=== PATIENT | female | born 1955 | race Caucasian/White ===

== ENCOUNTER 2024-11-12 10:53 | Outpatient (CLI) | payer MEDICARE, BC, SELFPAY ==
--- NOTE | ~2024-11-12 | CT_ITS ---
CT Scan of the Chest without Contrast: Clinical Indication: Lung cancer screening, nicotine dependence Technique: Contiguous sections were acquired throughout the chest without intravenous contrast. Dose reduction technique was used on this scan by utilizing automated exposure control and iterative recon struction technique. The dose-length product (DLP) was 86.90 mGy-cm. Findings: There is no evidence of any significant mediastinal, hilar or axillary lymphadenopathy. Coronary ki ry calcifications are present. There is no evidence of pleural or pericardial effusion. Moderate emphysema present. There is an area cystic change at the right lung base. No pulmonary nodul e evident. Images through the upper abdomen reveal no abnormalities. There is DISH of the thoracic spine. Impression: Lung RADS 2: Benign appearance. 12 month follow-up screening CT advised. Reviewed, dictated and finalized at [facility]. Impression: Lung RADS 2: Benign appearance. 12 month follow-up screening CT advised.
== END 2024-11-12 10:54 | disposition home or self-care (01) ==
PROVIDERS: PCP Nurse Practitioner Family; Visit Provider Nurse Practitioner Family
DX: Z12.2 Encounter for screening for malignant neoplasm of respiratory organs (principal); Z87.891 Personal history of nicotine dependence
CPT/HCPCS: 71271

== ENCOUNTER 2024-11-21 11:50 | Emergency (ER) | payer MEDICARE, BC, SELFPAY ==
--- NOTE | ~2024-11-21 | XR_ITS ---
EXAMINATION: XR foot RT min 3V DATE: 11/21/2024 12:17 INDICATION: Pain and erythema in the metatarsal region of the foot TECHNIQUE: Dorsoplantar, two oblique and lateral views of the right foot were obtained. COMPARISON: None. FINDINGS: Likely old healed fracture at the neck of the right fifth metatarsal. Bone alignment is otherwise nor mal. No acute fractures identified. Erosion with overhanging edges and sclerotic margins at the media l head of the first metatarsal with typical location and appearance for gout. Mild polyarticular oste oarthritis at multiple tarsometatarsal, metatarsophalangeal and interphalangeal joints. Small heterot opic ossicle medial to the first metatarsophalangeal joint. Small plantar calcaneal spur. IMPRESSION: 1. Erosion at the medial head of the first metatarsal with typical location and appearance for gout. Reviewed, dictated and finalized at location A.
--- NOTE | 2024-11-21 11:51 | ED.LOWEXIN ---
HPI - Extremity Injury (Lower) General Chief Complaint: Extremity Injury, Lower Stated Complaint: RT Foot bruise Time Seen by Provider: 11/21/24 11:51 Source: patient Mode of arrival: ambulatory Limitations: no limitations History of Present Illness HPI Narrative: Ariana is a 69-year-old female patient presenting to the clinic today with complaints of right foot pain/swelling. States the area is burning and aching. States that she hit the right 5th toe/metatarsal area on a heavy wooden table leg on Tuesday. Denies falling, hitting her head, or loss of consciousness. States the area has become more painful swollen over the last few days. Thought initially it may be bruised. Patient does have history of bladder cancer and is having surgery on December 10. Denies any fevers, chills, body aches. Patient is not currently taking any blood thinners. No history of gout or cellulitis Related Data Home Medications ?Medication ?Instructions ?Recorded ?Confirmed ?Last Taken ?Type calcium 315 mg (as 1 tablet PO DAILY 11/07/24 11/21/24 Unknown History citrate)-vitamin D3 5 mcg (200 unit) tablet (Calcium Citrate + D) loratadine 10 mg tablet 10 mg PO DAILY 11/07/24 11/21/24 Unknown History vibegron 75 mg tablet (Gemtesa) mg PO 11/07/24 11/07/24 Unknown History Allergies Allergy/AdvReac Type Severity Reaction Status Date / Time No Known Allergies Allergy Verified 11/21/24 11:55 Review of Systems Review of Systems: Pertinent positives per HPI. Patient denies any fever, chills, rash, headache, visual changes, dizziness, cough, runny nose, sore throat, shortness of breath, chest pain, palpitations, nausea, vomiting, diarrhea, constipation, abdominal pain, or any urinary issues. [facility] Past Medical History Medical History Hypertension CKD (chronic kidney disease) Hypothyroidism Osteoporosis Elevated blood pressure reading in office without diagnosis of hypertension Type 2 diabetes mellitus COPD (chronic obstructive pulmonary disease) Bladder cancer Osteoarthritis Surgical History Surgical History H/O tubal ligation H/O foot surgery History of bladder surgery Family History Family History Father Lung cancer Heart disease Mother Breast cancer, Onset Age: 70 Heart disease Sibling Thymus cancer Grandparent Bladder cancer Social History Social History Smoking packs per day: 2 Smoking cigarettes per day: 40.0 Years smoked: 40 Smoking pack-years: 80.00 Smoking status: Former smoker Substance use: current Substance use type: marijuana Do You Feel Safe in your Home?: Yes Living arrangements: alone Comments At the time of my signature, I reviewed and agree with the nursing past medical, surgical, social, and family history. There is no relevant family history pertinent to the patient complaint. Exam Narrative: General: Well-developed, well nourished, in no apparent distress Head: Normocephalic, atraumatic. Cardio: Regular rate and rhythm, s1 and s2 normal, no murmur appreciated. Resp: Clear to auscultation bilaterally, no rhonchi, rales, wheezing or rubs. Musculoskeletal: No deformity, tender to palpation over the distal right 5th metatarsal, localized redness and swelling noted with redness up to the dorsal midfoot, grossly normal range of motion, muscle strength strong and equal, peripheral pulse strong, no edema, no cyanosis, normal gait and station Course Course Emergency Course: Portions of this record may have been created with voice recognition software. Level of Care: Express Care Visit Vital Signs Vital signs: Vital Signs Temperature 36.2 C L 11/21/24 12:00 Pulse Rate 66 11/21/24 12:00 Respiratory Rate 16 11/21/24 12:00 Blood Pressure 150/70 H 11/21/24 12:00 Pulse Oximetry 94 11/21/24 12:00 Oxygen Delivery Room Air 11/21/24 12:00 Temperature 36.2 C L 11/21/24 12:00 Pulse Rate 66 11/21/24 12:00 Respiratory Rate 16 11/21/24 12:00 Blood Pressure 150/70 H 11/21/24 12:00 Pulse Oximetry 94 11/21/24 12:00 Oxygen Delivery Room Air 11/21/24 12:00 Vital signs reviewed MDM - Extremity Injury (Lower) MDM Narrative Medical decision making narrative: At the time of visit patient is resting comfortably on the exam table. Patient appears to be nontoxic. Diagnostics: X-ray of the right foot was performed. X-ray shows possibility of gout erosion to the right great toe. Patient denies any history of gout. Also has old healed fracture of the right 5th metatarsal Plan: I suspect this is likely an arthritic flare however cannot rule out early cellulitis. Patient denies any current fevers chills or body aches. Patient has bladder cancer surgery on December 10. Prescription for Medrol Dosepak was ordered to cover for arthritis and Keflex was ordered to cover for early cellulitis. Supportive measures were discussed with the patient and they voiced understanding discharge instructions and agrees to treatment plan. Return precautions reviewed Differential Diagnosis Differential diagnosis: Likely fracture of toe and other (Metatarsal fracture, cellulitis, arthritis, gout) Discharge Plan Discharge Clinical Impression: Acute foot pain Patient Disposition: Home Condition: Stable Instructions: Antibiotic Form, Cellulitis (ED), Arthritis (ED), Metatarsalgia (DC) Additional Instructions: X-rays negative for any sign of fracture or malalignment of the right foot. Take Medrol Dosepak as prescribed Take cephalexin as prescribed Increase fluids and stay well hydrated May take Tylenol as needed for pain Follow-up with your primary care doctor in 5-7 days if symptoms persist or sooner if they worsen Patient Language: Cymraes Prescriptions: New cephalexin 500 mg capsule 500 mg PO Q8H 7 Days Qty: 21 0RF methylprednisolone [Medrol ([place])] 4 mg tablets,dose pack See Rx Instructions PO .COMPLEX Qty: 21 0RF Rx Instructions: orally per package directions No Action calcium citrate-vitamin D3 [Calcium Citrate + D] 315 mg-5 mcg (200 unit) tablet 1 tablet PO DAILY loratadine 10 mg tablet 10 mg PO DAILY Gemtesa 75 mg tablet PO budesonide-formoterol [Symbicort] 160-4.5 mcg/actuation HFA aerosol inhaler 2 puff inhalation Q12H Qty: 30.6 1RF Combivent Respimat 20-100 mcg/actuation mist 1 puff inhalation QID Qty: 12 1RF Rx Instructions: space evenly during waking hours levothyroxine [Synthroid] 25 mcg tablet 25 mcg PO DAILY Qty: 90 1RF montelukast 10 mg tablet 10 mg PO DAILY Qty: 90 1RF nebivolol 2.5 mg tablet 2.5 mg PO DAILY Qty: 90 1RF olmesartan-hydrochlorothiazide 20-12.5 mg tablet 1 tablet PO DAILY Qty: 90 1RF venlafaxine 75 mg capsule,extended release 24hr 75 mg PO DAILY Qty: 90 1RF clindamycin phosphate 1 % gel 1 applic topical BID PRN (Reason: abscess) Qty: 60 0RF rosuvastatin 20 mg tablet 20 mg PO DAILY Qty: 90 1RF Follow-up/Referrals: Kita Granger APRN [Primary Care Provider] - Time of Disposition: 12:33 Quality NIHSS Nursing Documentation ED NIHSS nursing documentation: reviewed/agree
[2024-11-21 12:00] VITALS: BP 150/70; PULSE 66; RESP 16; TEMP 36.2; O2SAT 94
== END 2024-11-21 12:32 | disposition home or self-care (01) ==
PROVIDERS: Emergency Provider Nurse Practitioner Family; PCP Nurse Practitioner Family
DX: M79.671 Pain in right foot (principal); I12.9 Hypertensive chronic kidney disease with stage 1 through stage 4 chronic kidney disease, or unspecified chronic kidney disease; E11.22 Type 2 diabetes mellitus with diabetic chronic kidney disease; N18.9 Chronic kidney disease, unspecified; C67.9 Malignant neoplasm of bladder, unspecified; E03.9 Hypothyroidism, unspecified; M81.0 Age-related osteoporosis without current pathological fracture; J44.9 Chronic obstructive pulmonary disease, unspecified; M19.90 Unspecified osteoarthritis, unspecified site; F17.210 Nicotine dependence, cigarettes, uncomplicated; F12.90 Cannabis use, unspecified, uncomplicated
CPT/HCPCS: 73630; 99213; G0463